=== PATIENT | female | born 1985 | race Native Hawaiian/Other Pacific Islander ===

== ENCOUNTER 2016-12-26 20:47 | Emergency (ER) | payer OTHER ==
[2016-12-26 20:48] LABS: URINE SOURCE CLEAN CATCH
[2016-12-26 20:53] LABS: BASOPHIL% 0.7 % (0-2.5); DIFF IND NO; EOSINOPHIL% 0.9 % (0.0-7.0); HEMATOCRIT 38.3 % (35.0-45.0); LYMPHOCYTE# 1.3 X10e3 (1.0-3.5); LYMPHOCYTE% 27.1 % (17.0-45.0); MEAN CELL VOLUME 89.5 FL (83-96); MEAN CORPUSCULAR HEMOGLOBIN 30.4 PG (28-34); MEAN PLATELET VOLUME 10.9 FL (6.5-11.5); MONOCYTE# 0.5 X10e3 (0-1.0); MONOCYTE% 10.2 % (3.0-12.0); NEUTROPHIL% 61.1 % (40-75); PLATELET COUNT 162 X10e3 (140-420); RED BLOOD COUNT 4.28 X10e (3.90-5.30); WHITE BLOOD COUNT 4.9 X10e3 (4.0-10.5)
[2016-12-26 20:57] LABS: URINE APPEARANCE TURBID; URINE BILIRUBIN NEG (NEG); URINE BLOOD NEG (NEG); URINE COLOR DK YELLOW; URINE GLUCOSE NEG (NEG); URINE KETONE NEG (NEG); URINE LEUKOCYTE ESTERASE 1+ (NEG); URINE NITRATE NEG (NEG); URINE PROTEIN TRACE (NEG); URINE SPECIFIC GRAVITY 1.028 (1.003-1.035)
[2016-12-26 20:59] LABS: URBCS1 AUWI 0-2 /[HPF] (0-2); URINE BACTERIA AUWI 4+ (NEGATIVE); URINE SQUAMOUS EPITHELIAL CELL FEW /[HPF]
[2016-12-26 21:10] LABS: BLOOD UREA NITROGEN 7 mg/dL (9-23); CALCIUM SERUM 8.9 mg/dL (8.4-10.2); CARBON DIOXIDE 22 mmol/L (22-31); CHLORIDE 97 mmol/L (100-111); CREATININE SERUM 0.4 mg/dL (0.6-1.4); GLOM FILT RATE Estimated ABOVE60 mL/min (>60); GLUCOSE FASTING 99 mg/dL (70-110); POTASSIUM 3.7 mmol/L (3.5-5.1); SODIUM 127 mmol/L (135-145)
== END 2016-12-26 23:53 | disposition home or self-care (01) ==
LOC: CED 20:47
PROVIDERS: Emergency Medicine
DX: O99.280 Endocrine, nutritional and metabolic diseases complicating pregnancy, unspecified trimester (principal); O21.0 Mild hyperemesis gravidarum; O23.10 Infections of bladder in pregnancy, unspecified trimester
CPT/HCPCS: 36415; 80048; 81003; 84703; 85025; 96360; 96361; 99284; J2405